=== PATIENT | male | born 1985 | race Hispanic/Latino ===

== ENCOUNTER 2017-04-27 14:26 | Emergency (ER) | payer OTHER ==
[2017-04-27 14:35] VITALS: BP 119/55; PULSE 90; RESP 16; TEMP 97.5; O2SAT 95
--- NOTE | 2017-04-27 14:42 | ED PDOC ---
HPI: General Adult Time Seen by Provider: 04/27/17 14:33 Chief Complaint (Nursing): Lower Extremity Problem/Injury Chief Complaint (Provider): Atraumatic Left Heel Pain History Per: Patient History/Exam Limitations: no limitations Onset/Duration Of Symptoms: Days (x2 weeks) Have you had recent travel within the past 21 days to any of the following countries: [place], [place], [place] or [place]?: No Current Symptoms Are (Timing): Still Present Additional Complaint(s): Hussain Pina, a 32 year old male, presents to the ED complaining of atraumatic left heel pain x2 weeks. The patient reports that he works 9 hours a day and is constantly on his feet. Denies trauma, numbness, tingling, calf pain, injury to leg. Past Medical History Reviewed: Historical Data, Nursing Documentation, Vital Signs Vital Signs: Last Vital Signs Temp 97.5 F L 04/27/17 14:32 Pulse 90 04/27/17 14:32 Resp 16 04/27/17 14:32 BP 119/55 L 04/27/17 14:32 Pulse Ox 95 04/27/17 14:42 - Medical History PMH: No Chronic Diseases - Surgical History Surgical History: No Surg Hx - Family History Family History: States: No Known Family Hx - Social History Current smoker - smoking cessation education provided: Yes (Current Some Days Smoker) Ex-Smoker (has not smoked in the last 12 months): Yes Alcohol: Other Drugs: Denies - Home Medications Home Medications: Ambulatory Orders Medication Instructions Recorded Cetirizine HCl [Zyrtec] 10 mg PO DAILY #10 capsule 07/28/15 Hydrocortisone Malu 0.2% Cr 1 ea TP BID #1 tube 07/28/15 [Westcort] predniSONE [predniSONE Tab] 10 mg PO TID #15 tab 07/28/15 Naproxen [Naprosyn] 500 mg PO BID PRN #30 tab 04/27/17 - Allergies Allergies/Adverse Reactions: Allergies Allergy/AdvReac Type Severity Reaction Status Date / Time No Known Allergies Allergy Verified 07/28/15 09:54 Review of Systems ROS Statement: Except As Marked, All Systems Reviewed And Found Negative Musculoskeletal: Positive for: Other (left heel pain) Physical Exam - Reviewed Nursing Documentation Reviewed: Yes Vital Signs Reviewed: Yes - Physical Exam Appears: Positive for: Non-toxic, No Acute Distress Pulses-Dorsalis Pedis (L): 2+ Extremity: Positive for: Normal ROM (normal ROM of left foot), Capillary Refill (less than 2 seconds), Other (no break in skin integrity no lesions on left foot ). Negative for: Tenderness (no tenderness to left foot), Calf Tenderness , Swelling (no swelling to left foot) Neurologic/Psych: Positive for: Alert, Oriented, Gait - ECG O2 Sat by Pulse Oximetry: 95 (RA) Pulse Ox Interpretation: Normal Medical Decision Making Medical Decision Makin Initial Impression 32 y/o male presenting with atraumatic left heel pain Initial Plan: * Reevaluation Pt was offered x-ray but states he will follow up with podiatry clinic but is requesting work note because missed work today. Patient is medically stable and requires no further treatment in the ED at this time. He will be discharged home. Scribe Attestation Documented by Adelia Ortega acting as a scribe for Willard Camilo PA-C. Scribe Attestation All medical record entries made by the Scribe were at my direction and personally dictated by me. I have reviewed the chart and agree that the record accurately reflects my personal performance of the history, physical exam, medical decision making, and the department course for this patient. I have also personally directed, reviewed, and agree with the discharge instructions and disposition. Disposition - Clinical Impression Clinical Impression: Heel pain - Patient ED Disposition Is Patient to be Admitted: No - Disposition Referrals: Podiatry Clinic [Outside] Disposition: Routine/Home Disposition Time: 14:40 Condition: STABLE Additional Instructions: Follow up with podiatry clinic next week for further evaluation. Prescriptions: Naproxen [Naprosyn] 500 mg PO BID PRN #30 tab PRN Reason: Pain Instructions: Heel Spur (ED) Forms: [employer] (Turkish), [facility] ED School/Work Excuse
== END 2017-04-27 14:55 | disposition home or self-care (01) ==
LOC: H.ER 14:26
DX: M79.672 Pain in left foot (principal)

== ENCOUNTER 2017-05-01 12:30 | Emergency (ER) | payer OTHER ==
[2017-05-01 12:52] VITALS: BP 114/66; PULSE 78; RESP 16; TEMP 98; O2SAT 100
--- NOTE | 2017-05-01 13:36 | ED PDOC ---
Lower Extremity Pain/Injury Time Seen by Provider: 05/01/17 12:49 Chief Complaint (Nursing): Lower Extremity Problem/Injury Chief Complaint (Provider): Lower Extremity Problem/Injury History Per: Patient History/Exam Limitations: no limitations Current Symptoms Are (Timing): Still Present Additional Complaint(s): 32 y/o male presents to the ED for evaluation of continued left heel pain x 2 weeks. He notes that the pain is worse when bearing weight. Patient was evaluated on 04/27/17 for same complaint, but he lost discharge papers with follow up information. Past Medical History Reviewed: Historical Data, Nursing Documentation, Vital Signs Vital Signs: Last Vital Signs Temp 98.0 F 05/01/17 12:50 Pulse 78 05/01/17 12:50 Resp 16 05/01/17 12:50 BP 114/66 05/01/17 12:50 Pulse Ox 100 05/01/17 12:50 - Medical History PMH: No Chronic Diseases - Surgical History Surgical History: No Surg Hx - Family History Family History: States: Unknown Family Hx - Living Arrangements Living Arrangements: With Family - Social History Current smoker - smoking cessation education provided: Yes (Some days smoker) Alcohol: Occasional Drugs: Denies - Home Medications Home Medications: Ambulatory Orders Medication Instructions Recorded Cetirizine HCl [Zyrtec] 10 mg PO DAILY #10 capsule 07/28/15 Hydrocortisone Malu 0.2% Cr 1 ea TP BID #1 tube 07/28/15 [Westcort] predniSONE [predniSONE Tab] 10 mg PO TID #15 tab 07/28/15 Naproxen [Naprosyn] 500 mg PO BID PRN #30 tab 04/27/17 - Allergies Allergies/Adverse Reactions: Allergies Allergy/AdvReac Type Severity Reaction Status Date / Time No Known Allergies Allergy Verified 05/01/17 12:50 Review of Systems ROS Statement: Except As Marked, All Systems Reviewed And Found Negative (As per HPI, otherwise negative) Constitutional: Negative for: Fever, Chills Musculoskeletal: Positive for: Other (Left heel pain ) Physical Exam - Reviewed Nursing Documentation Reviewed: Yes Vital Signs Reviewed: Yes - Physical Exam Appears: Positive for: Non-toxic, No Acute Distress Skin: Positive for: Normal Color, Warm, Dry Eye Exam: Positive for: Normal appearance ENT: Positive for: Normal ENT Inspection Neck: Positive for: Normal Respiratory: Negative for: Accessory Muscle Use, Respiratory Distress Extremity: Positive for: Normal ROM, Tenderness (tenderness on deep palaption of left heel). Negative for: Deformity, Swelling, Other (erythema) Neurologic/Psych: Positive for: Alert, Oriented (x3) - ECG O2 Sat by Pulse Oximetry: 100 (RA) Pulse Ox Interpretation: Normal Medical Decision Making Medical Decision Making: Time: 12:57 Plan: Left foot x-ray Foot x-ray without acute fracture or dislocation Scribe Attestation: Documented by Arelis Rangel acting as a scribe for Yael Jackson PA-C. MD Scribe Attestation: All medical record entries made by the Scribe were at my direction and personally dictated by me. I have reviewed the chart and agree that the record accurately reflects my personal performance of the history, physical exam, medical decision making, and the department course for this patient. I have also personally directed, reviewed, and agree with the discharge instructions and disposition. Disposition - Clinical Impression Clinical Impression: Heel pain - Patient ED Disposition Is Patient to be Admitted: No - Disposition Referrals: [facility] [Outside] Podiatry Clinic [Outside] Disposition: Routine/Home Disposition Time: 13:47 Condition: GOOD Instructions: Arthralgia (ED) Forms: [employer] (Yoruba)
--- NOTE | 2017-05-01 14:23 | RAD ---
PROCEDURE: Left Foot Radiographs. HISTORY: heel pain, no trauma COMPARISON: None. FINDINGS: BONES: Normal. No fracture. JOINTS: Normal. SOFT TISSUES: Normal. OTHER FINDINGS: None. IMPRESSION: Normal left foot radiographs.
== END 2017-05-01 14:06 | disposition home or self-care (01) ==
LOC: H.ER 12:30
DX: M79.671 Pain in right foot (principal)

== ENCOUNTER 2017-07-03 02:10 | Emergency (ER) | payer OTHER ==
[2017-07-03 02:32] VITALS: BP 130/72; PULSE 82; RESP 17; TEMP 98.4; O2SAT 97
--- NOTE | 2017-07-03 03:32 | ED PDOC ---
HPI: Chest Pain Time Seen by Provider: 07/03/17 02:21 Chief Complaint (Nursing): Chest Pain Chief Complaint (Provider): Chest Pain History Per: Patient History/Exam Limitations: no limitations Onset/Duration Of Symptoms: Days (x2) Current Symptoms Are (Timing): Still Present Additional Complaint(s): Hussain Pina is a 32 year old male with no past medical history that presents to the ED with a chief complaint of intermittent, pressure-like right- sided chest pain that he has been experiencing for the past 2 days. Patient denies any nausea, vomiting, cough, shortness of breath, fever, or diaphoresis. Past Medical History Reviewed: Historical Data, Nursing Documentation, Vital Signs Vital Signs: Last Vital Signs Temp 98.4 F 07/03/17 02:24 Pulse 82 07/03/17 02:24 Resp 17 07/03/17 02:24 BP 130/72 07/03/17 02:24 Pulse Ox 97 07/03/17 03:34 - Medical History PMH: No Chronic Diseases - Surgical History Surgical History: No Surg Hx - Family History Family History: States: Unknown Family Hx, CAD Other Family History: Father hx of heart disease - Social History Current smoker - smoking cessation education provided: No Alcohol: None Drugs: Denies - Home Medications Home Medications: Ambulatory Orders Medication Instructions Recorded Cetirizine HCl [Zyrtec] 10 mg PO DAILY #10 capsule 07/28/15 Hydrocortisone Malu 0.2% Cr 1 ea TP BID #1 tube 07/28/15 [Westcort] predniSONE [predniSONE Tab] 10 mg PO TID #15 tab 07/28/15 Naproxen [Naprosyn] 500 mg PO BID PRN #30 tab 04/27/17 - Allergies Allergies/Adverse Reactions: Allergies Allergy/AdvReac Type Severity Reaction Status Date / Time No Known Allergies Allergy Verified 05/01/17 12:50 Review of Systems ROS Statement: Except As Marked, All Systems Reviewed And Found Negative Cardiovascular: Positive for: Chest Pain Physical Exam - Reviewed Nursing Documentation Reviewed: Yes Vital Signs Reviewed: Yes - Physical Exam Appears: Positive for: Non-toxic, No Acute Distress Head Exam: Positive for: ATRAUMATIC, NORMOCEPHALIC Skin: Positive for: Normal Color, Warm Eye Exam: Positive for: Normal appearance, EOMI, PERRL ENT: Positive for: Normal ENT Inspection Neck: Positive for: Normal, Supple Cardiovascular/Chest: Positive for: Regular Rate, Rhythm. Negative for: Edema, Murmur Respiratory: Positive for: Normal Breath Sounds. Negative for: Wheezing Gastrointestinal/Abdominal: Positive for: Normal Exam, Soft. Negative for: Tenderness Back: Positive for: Normal Inspection. Negative for: L CVA Tenderness, R CVA Tenderness Extremity: Positive for: Normal ROM. Negative for: Pedal Edema, Deformity, Swelling Neurologic/Psych: Positive for: Alert, Oriented. Negative for: Motor/Sensory Deficits - Laboratory Results Result Diagrams: 07/03/17 03:45 07/03/17 03:45 - ECG O2 Sat by Pulse Oximetry: 97 (RA) Pulse Ox Interpretation: Normal Medical Decision Making Medical Decision Making: Impression: 32 year old male with chest pain Plan: * Chest X-Ray * EKG * CMP * CBC * Troponin I * Reevaluation * * * Patient reports improvement in symptoms and is stable upon discharge DX Atypical Chest Pain Stable [facility] Scribe Attestation: Documented by Ayana Pringle, acting as a scribe for Philipp Drake MD. Provider Scribe Attestation: All medical record entries made by the Scribe were at my direction and personally dictated by me. I have reviewed the chart and agree that the record accurately reflects my personal performance of the history, physical exam, medical decision making, and the department course for this patient. I have also personally directed, reviewed, and agree with the discharge instructions and disposition. Disposition - Clinical Impression Clinical Impression: Atypical chest pain - Disposition Referrals: [facility] [Outside] Disposition: Routine/Home Disposition Time: 04:00 Condition: STABLE Instructions: Noncardiac Chest Pain (ED) Forms: [email or web address] (Serbian), [facility] ED School/Work Excuse
[2017-07-03 03:48] LABS: BASO # 0.1 K/uL (0.0-0.2); BASO % 0.5 % (0.0-2.0); EOS # 0.1 K/uL (0.0-0.7); EOS % 0.9 % (0.0-4.0); HEMOGLOBIN 15.3 g/dL (12.0-18.0); LYMPH # 2.1 K/uL (1.0-4.3); LYMPH % 13.4 % (20.0-40.0); MEAN CELL VOLUME 91.9 fl (80.0-94.0); MEAN CORPUSCULAR HEMOGLOBIN 30.9 pg (27.0-31.0); MEAN CORPUSCULAR HGB CONC 33.6 g/dL (33.0-37.0); MEAN PLATELET VOLUME 9.7 fl (7.2-11.7); MONO # 1.5 K/uL (0.0-0.8); MONO % 9.4 % (0.0-10.0); NEUT # 11.8 K/uL (1.8-7.0); NEUT % 75.8 % (50.0-75.0); NRBC % 0.1 % (0.0-0.0); RBC 4.96 Mil/uL (4.40-5.90); RED CELL DISTRIBUTION WIDTH 12.8 % (11.5-14.5); WHITE BLOOD COUNT 15.5 K/uL (4.8-10.8)
[2017-07-03 03:57] LABS: BLOOD UREA NITROGEN 12 mg/dl (9-20); CALCIUM 9.2 mg/dL (8.4-10.2); GFR AFRICAN-AMERICAN > 60; GFR NON-AFRICAN AMERICAN > 60
--- NOTE | 2017-07-03 08:38 | RAD ---
HISTORY: chest pain COMPARISON: None FINDINGS: LUNGS: No active pulmonary disease. PLEURA: No significant pleural effusion identified, no pneumothorax apparent. CARDIOVASCULAR: Normal. OSSEOUS STRUCTURES: No significant abnormalities. VISUALIZED UPPER ABDOMEN: Normal. OTHER FINDINGS: None. IMPRESSION: No active disease.
--- NOTE | 2017-07-03 14:08 | CARD ---
APPROVED REPORT EKG Measurement Heart [id number] <Conclusion> Normal sinus rhythm Normal ECG
== END 2017-07-03 05:30 | disposition home or self-care (01) ==
LOC: H.ER 02:10
DX: R07.89 Other chest pain (principal)

== ENCOUNTER 2017-08-07 12:40 | Emergency (ER) | payer OTHER ==
[2017-08-07 12:48] VITALS: BP 121/74; PULSE 76; RESP 16; TEMP 97; O2SAT 100
--- NOTE | 2017-08-07 13:30 | ED PDOC ---
HPI: General Adult Time Seen by Provider: 08/07/17 13:10 Chief Complaint (Nursing): Lower Extremity Problem/Injury Chief Complaint (Provider): Back of right thigh pain History Per: Patient History/Exam Limitations: no limitations Onset/Duration Of Symptoms: Hrs (x1) Current Symptoms Are (Timing): Still Present Additional Complaint(s): Hussain Pina is a 32 year old male, with no significant past medical history, who presents to the emergency department complaining of sudden pain in the back of the right thigh onset since yesterday. 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 He is afraid he might further worsen the injury. He denies any calf pain or radiation of pain, blood trauma, numbness or tingling, chest pain or shortness of breath. Patient is requesting a work note. PMD: None provided. Past Medical History Reviewed: Historical Data, Nursing Documentation, Vital Signs Vital Signs: Last Vital Signs Temp 97.0 F L 08/07/17 12:45 Pulse 76 08/07/17 12:45 Resp 16 08/07/17 12:45 BP 121/74 08/07/17 12:45 Pulse Ox 100 08/07/17 14:29 - Medical History PMH: No Chronic Diseases - Family History Family History: States: Unknown Family Hx, CAD - Social History Current smoker - smoking cessation education provided: No Alcohol: None Drugs: Denies - Home Medications Home Medications: Ambulatory Orders Medication Instructions Recorded Cetirizine HCl [Zyrtec] 10 mg PO DAILY #10 capsule 07/28/15 Hydrocortisone Malu 0.2% Cr 1 ea TP BID #1 tube 07/28/15 [Westcort] predniSONE [predniSONE Tab] 10 mg PO TID #15 tab 07/28/15 Naproxen [Naprosyn] 500 mg PO BID PRN #30 tab 04/27/17 Naproxen [Naprosyn] 500 mg PO BID PRN #10 tab 08/07/17 - Allergies Allergies/Adverse Reactions: Allergies Allergy/AdvReac Type Severity Reaction Status Date / Time No Known Allergies Allergy Verified 08/07/17 12:45 Review of Systems ROS Statement: Except As Marked, All Systems Reviewed And Found Negative Constitutional: Negative for: Other (trauma) Cardiovascular: Negative for: Chest Pain Respiratory: Negative for: Shortness of Breath Musculoskeletal: Positive for: Leg Pain (back of the thigh). Negative for: Other (calf pain) Neurological: Negative for: Numbness (or tingling) Physical Exam - Reviewed Nursing Documentation Reviewed: Yes Vital Signs Reviewed: Yes - Physical Exam Appears: Positive for: Well, Non-toxic, No Acute Distress Head Exam: Positive for: ATRAUMATIC, NORMAL INSPECTION, NORMOCEPHALIC Skin: Positive for: Normal Color, Warm, Dry. Negative for: Rash Eye Exam: Positive for: Normal appearance Neck: Positive for: Painless ROM Pulses-Dorsalis Pedis (L): 2+ Pulses-Dorsalis Pedis (R): 2+ Extremity: Positive for: Normal ROM (full ROM actively of the right hip and right knee.), Tenderness (mild tenderness in mid posterior right thigh.). Negative for: Deformity, Swelling Neurologic/Psych: Positive for: Alert, Oriented - ECG O2 Sat by Pulse Oximetry: 100 (RA) Pulse Ox Interpretation: Normal Medical Decision Making Medical Decision Making: Initial Impression: Hamstring injury Initial Plan: --Reevaluation 13:28 Upon provider reevaluation patient is feeling better, is medically stable, and requires no further treatment in the ED at this time. Patient will be discharged home with Rx for Naprosyn. Counseling was provided and all questions were answered regarding diagnosis and need for follow up with outpatient health clinic. There is agreement to discharge plan. Return if symptoms persist or worsen. ~ Scribe Attestation: Documented by Leoncio Mccain, acting as a scribe for Willard Camilo PA-C. Provider Scribe Attestation: All medical record entries made by the Scribe were at my direction and personally dictated by me. I have reviewed the chart and agree that the record accurately reflects my personal performance of the history, physical exam, medical decision making, and the department course for this patient. I have also personally directed, reviewed, and agree with the discharge instructions and disposition. Disposition - Clinical Impression Clinical Impression: Hamstring injury - Patient ED Disposition Is Patient to be Admitted: No - Disposition Referrals: [facility] [Outside] Disposition: Routine/Home Disposition Time: 13:28 Condition: STABLE Additional Instructions: Follow up with orthopedist if symptoms persist or worsen. Prescriptions: Naproxen [Naprosyn] 500 mg PO BID PRN #10 tab PRN Reason: Pain Instructions: Hamstring Injury Forms: [facility] (Burmese), [facility] ED School/Work Excuse Print Language: GUINEAN
== END 2017-08-07 14:17 | disposition home or self-care (01) ==
LOC: H.ER 12:40
DX: S79.921A Unspecified injury of right thigh, initial encounter (principal); X50.0XXA Overexertion from strenuous movement or load, initial encounter; Y92.89 Other specified places as the place of occurrence of the external cause

== ENCOUNTER 2018-02-09 14:37 | Emergency (ER) | payer OTHER ==
--- NOTE | 2018-02-09 15:03 | ED PDOC ---
HPI: Abdomen Time Seen by Provider: 02/09/18 15:03 Chief Complaint (Nursing): Abdominal Pain Chief Complaint (Provider): abdominal pain History Per: Patient Additional Complaint(s): 32-year-old male presents with generalized lower abdominal pain that started earlier today. He denies any associated fever, chills, nausea, vomiting, diarrhea or constipation. Patient has had normal appetite. He denies consumption of any foods that could've caused stomach upset. No recent travel. No associated dysuria or hematuria. Patient denies concern for STDs. PMD: none Past Medical History Reviewed: Historical Data, Nursing Documentation, Vital Signs Vital Signs: Last Vital Signs Temp 98.9 F 02/09/18 17:43 Pulse 64 02/09/18 17:43 Resp 16 02/09/18 17:43 BP 138/67 02/09/18 17:43 Pulse Ox 97 02/09/18 17:43 - Medical History PMH: No Chronic Diseases - Surgical History Other surgeries: left arm fracture repair - Family History Family History: States: CAD - Living Arrangements Living Arrangements: With Family - Social History Current smoker - smoking cessation education provided: No Alcohol: None Drugs: Denies - Home Medications Home Medications: Ambulatory Orders Medication Instructions Recorded No Known Home Med 02/09/18 - Allergies Allergies/Adverse Reactions: Allergies Allergy/AdvReac Type Severity Reaction Status Date / Time No Known Allergies Allergy Verified 02/09/18 14:57 Review of Systems ROS Statement: Except As Marked, All Systems Reviewed And Found Negative Constitutional: Negative for: Fever, Chills Cardiovascular: Negative for: Chest Pain Respiratory: Negative for: Cough, Shortness of Breath Gastrointestinal: Positive for: Abdominal Pain. Negative for: Nausea, Vomiting , Diarrhea, Constipation Genitourinary Male: Negative for: Dysuria, Frequency, Incontinence, Hematuria, Penile Discharge, Scrotal Pain Physical Exam - Reviewed Nursing Documentation Reviewed: Yes Vital Signs Reviewed: Yes - Physical Exam Appears: Positive for: Well, Non-toxic, No Acute Distress Skin: Positive for: Normal Color. Negative for: Rash Eye Exam: Positive for: Normal appearance Cardiovascular/Chest: Positive for: Regular Rate, Rhythm Respiratory: Positive for: Normal Breath Sounds. Negative for: Wheezing, Respiratory Distress Gastrointestinal/Abdominal: Positive for: Tenderness (RLQ, LLQ). Negative for: Distended, Guarding, Rebound Back: Negative for: L CVA Tenderness, R CVA Tenderness, Vertebral Tenderness Extremity: Positive for: Normal ROM Neurologic/Psych: Positive for: Alert, Oriented - Laboratory Results Result Diagrams: 02/09/18 15:46 02/09/18 15:46 Urine dip results: Negative for: Leukocyte Esterase, Blood, Nitrate, Ketones, Glucose, Bilirubin, Protein - ECG O2 Sat by Pulse Oximetry: 98 Pulse Ox Interpretation: Normal - Other Rad CT abd and pelvis with IV contrast X-Ray: Read By Radiologist X-Ray Interpretation: no acute finding Medical Decision Making Medical Decision Makin32 y/o male with abdominal pain Plan: Urine dip CBC CMP Lipase Pain meds declined by patient CT abd and pelvis with IV contrast Patient is aware of diagnostic testing results, all questions answered. Advised Tylenol for pain and follow-up with clinic for any persistent symptoms. Disposition - Clinical Impression Clinical Impression: Abdominal pain - Patient ED Disposition Is Patient to be Admitted: No Counseled Patient/Family Regarding: Studies Performed, Diagnosis, Need For Followup - Disposition Referrals: [facility] [Outside] Disposition: Routine/Home Disposition Time: 18:38 Condition: STABLE Additional Instructions: Tylenol for pain as needed. Follow-up with clinic in 2-3 days or return to ED any time if acutely worse. Instructions: Stomach Ache and Stomach Upset Forms: [employer] (Maltese), [facility] ED School/Work Excuse Results - Lab Results Lab Results: 02/09/18 02/09/18 15:46 15:46 WBC 17.4 H RBC 4.99 Hgb 15.6 Hct 46.1 MCV 92.3 MCH 31.2 H MCHC 33.8 RDW 12.9 Plt Count 215 MPV 9.4 Neut % (Auto) 68.4 Lymph % (Auto) 18.6 L Boundary % (Auto) 11.1 H Eos % (Auto) 1.5 Baso % (Auto) 0.4 Neut # (Auto) 11.9 H Lymph # (Auto) 3.2 Boundary # (Auto) 1.9 H Eos # (Auto) 0.3 Baso # (Auto) 0.1 Sodium 138 Potassium 4.1 Chloride 106 Carbon Dioxide 26 Anion Gap 10 BUN 16 Creatinine 0.8 Est GFR ( Amer) > 60 Est GFR (Non-Af Amer) > 60 Random Glucose 119 H Calcium 9.3 Total Bilirubin 0.3 AST 26 ALT 33 Alkaline Phosphatase 73 Total Protein 7.6 Albumin 4.2 Globulin 3.5 Albumin/Globulin Ratio 1.2 Lipase 79
[2018-02-09 15:56] LABS: BASO # 0.1 K/uL (0.0-0.2); BASO % 0.4 % (0.0-2.0); EOS # 0.3 K/uL (0.0-0.7); EOS % 1.5 % (0.0-4.0); HEMOGLOBIN 15.6 g/dL (12.0-18.0); LYMPH # 3.2 K/uL (1.0-4.3); LYMPH % 18.6 % (20.0-40.0); MEAN CELL VOLUME 92.3 fl (80.0-94.0); MEAN CORPUSCULAR HEMOGLOBIN 31.2 pg (27.0-31.0); MEAN CORPUSCULAR HGB CONC 33.8 g/dL (33.0-37.0); MEAN PLATELET VOLUME 9.4 fl (7.2-11.7); MONO # 1.9 K/uL (0.0-0.8); MONO % 11.1 % (0.0-10.0); NEUT # 11.9 K/uL (1.8-7.0); NEUT % 68.4 % (50.0-75.0); NRBC % 0.1 % (0.0-0.0); RBC 4.99 Mil/uL (4.40-5.90); RED CELL DISTRIBUTION WIDTH 12.9 % (11.5-14.5); WHITE BLOOD COUNT 17.4 K/uL (4.8-10.8)
[2018-02-09 16:01] LABS: ALB/GLOB RATIO 1.2 (1.0-2.1); ALBUMIN 4.2 g/dL (3.5-5.0); ALT/SGPT 33 U/L (21-72); AST/SGOT 26 U/L (17-59); BLOOD UREA NITROGEN 16 mg/dl (9-20); CALCIUM 9.3 mg/dL (8.4-10.2); GFR NON-AFRICAN AMERICAN > 60; LIPASE 79 U/L (23-300)
[2018-02-09] MEDS ORDERED: Sodium Chloride 0.9% 1,000 ML IV STA (16:02)
[2018-02-09] MEDS ORDERED: Sodium Chloride 0.9% 50 ML IV ONE (16:56)
[2018-02-09] MEDS ORDERED: Iohexol 300 100 ML IJ ONE (16:56)
[2018-02-09 18:50] VITALS: O2SAT 98
[2018-02-09 19:36] VITALS: BP 135/70; PULSE 70; RESP 18; TEMP 98.8
--- NOTE | 2018-02-10 10:11 | CT ---
Date of service: 02/09/2018 PROCEDURE: CT Abdomen and Pelvis with contrast HISTORY: lower abd pain COMPARISON: None. TECHNIQUE: Following the intravenous administration of iodinated contrast material, a CT examination of the abdomen and pelvis performed from the domes of the diaphragms to the symphysis pubis with reformatted datasets provided in axial, sagittal and coronal planes. Oral contrast was not administered as per referring physician request. Coronal and sagittal reformats were generated. contrast dose: Omnipaque 300, 95 cc Radiation dose: Total exam DLP = 790.07 mGy-cm. This CT exam was performed using one or more of the following dose reduction techniques: Automated exposure control, adjustment of the mA and/or kV according to patient size, and/or use of iterative reconstruction technique. FINDINGS: LOWER THORAX: Unremarkable. LIVER: Upper limits normal liver with no discrete mass or intrahepatic biliary duct dilatation appreciated. GALLBLADDER AND BILE DUCTS: Unremarkable. PANCREAS: Unremarkable. No gross lesion or ductal dilatation. SPLEEN: Unremarkable. ADRENALS: Unremarkable. No mass. KIDNEYS AND URETERS: Unremarkable. No hydronephrosis. No solid mass. VASCULATURE: Unremarkable. No aortic aneurysm. BOWEL: Fluid and air distended stomach which is otherwise unremarkable appearing. Nonobstructive bowel gas. No gross mural thickening. No local mesenteric reactive changes identified throughout. Segments somewhat ectopic terminating at the central abdomen. APPENDIX: Normal appendix. PERITONEUM: Unremarkable. No free fluid. No free air. LYMPH NODES: Unremarkable. No enlarged lymph nodes. BLADDER: Unremarkable. REPRODUCTIVE: Unremarkable. BONES: Anterior wedging of the T11 and T12 vertebral bodies is limited and overall appearance may reflect fracture, potentially chronic but ultimately indeterminate in age. OTHER FINDINGS: None. IMPRESSION: No suspicious abdominal or pelvic findings at this time as discussed above relative to potential acute pathology. The appendix not identified but there is no CT evidence to suggest appendicitis. Anterior wedging of T11 and T12 is a minimal finding and may reflect mild compression fractures of indeterminate age.
== END 2018-02-09 18:48 | disposition home or self-care (01) ==
LOC: H.ER 14:37
DX: R10.30 Lower abdominal pain, unspecified (principal)
CPT/HCPCS: 74177; 80053; 83690; 85025; 87040; 87086; 87491; 87591; 96360; 99284; J7030; Q9967

== ENCOUNTER 2018-02-17 07:15 | Emergency (ER) | payer OTHER ==
[2018-02-17 07:34] VITALS: BMI 30.8
[2018-02-17] MEDS ORDERED: DiphenhydrAMINE 50 mg/ml Inj IVP STA (08:12)
[2018-02-17] MEDS ORDERED: methylPREDNISolone 125 MG in Sodium Chloride 0.9% 50 ML IV STA (08:13)
[2018-02-17 08:43] LABS: BASO # 0.1 K/uL (0.0-0.2); BASO % 0.5 % (0.0-2.0); EOS # 0.3 K/uL (0.0-0.7); EOS % 2.2 % (0.0-4.0); HEMOGLOBIN 14.9 g/dL (12.0-18.0); LYMPH % 14.7 % (20.0-40.0); MEAN CELL VOLUME 93.2 fl (80.0-94.0); MEAN CORPUSCULAR HEMOGLOBIN 31.3 pg (27.0-31.0); MEAN CORPUSCULAR HGB CONC 33.6 g/dL (33.0-37.0); MEAN PLATELET VOLUME 9.6 fl (7.2-11.7); MONO # 1.1 K/uL (0.0-0.8); MONO % 7.8 % (0.0-10.0); NEUT # 10.2 K/uL (1.8-7.0); NEUT % 74.8 % (50.0-75.0); RBC 4.75 Mil/uL (4.40-5.90); RED CELL DISTRIBUTION WIDTH 13.2 % (11.5-14.5); WHITE BLOOD COUNT 13.7 K/uL (4.8-10.8)
[2018-02-17 08:51] LABS: BLOOD UREA NITROGEN 15 mg/dl (9-20); CALCIUM 9.1 mg/dL (8.4-10.2); GFR NON-AFRICAN AMERICAN > 60
--- NOTE | 2018-02-17 08:54 | ED PDOC ---
HPI: Allergic Reaction Time Seen by Provider: 02/17/18 07:37 Chief Complaint (Nursing): Abnormal Skin Integrity Chief Complaint (Provider): rash History Per: Patient History/Exam Limitations: no limitations Onset/Duration Of Symptoms: Days (several) Current Symptoms Are (Timing): Still Present Associated Symptoms: Skin Rash, Itching Additional Complaint(s): Hussain Pina is a 32 year old male, with no significant past medical history, who presents to the emergency department complaining of a worsening itchy rash onset for several days. Patient states he initially noticed rash on arms as itchy red bumps but it has since spread to stomach, back, and legs. Symptoms worsens after taking a shower. Patient had a CT last week here due to abdominal pains and reports symptoms started x2 days after CT was done. He denies any shortness of breath, chest pain, tongue swelling, drooling, lip swelling or periorbital numbness. No further medical complaints. PMD: None provided. Past Medical History Reviewed: Historical Data, Nursing Documentation, Vital Signs Vital Signs: Last Vital Signs Temp 97.9 F 02/17/18 07:31 Pulse 101 H 02/17/18 07:31 Resp 20 02/17/18 07:31 BP 110/72 02/17/18 07:31 Pulse Ox 97 02/17/18 07:31 - Medical History PMH: No Chronic Diseases - Surgical History Surgical History: No Surg Hx - Family History Family History: States: Unknown Family Hx, CAD - Home Medications Home Medications: Ambulatory Orders Medication Instructions Recorded DiphenhydrAMINE [Benadryl] 25 mg PO BID PRN #14 cap 02/17/18 Famotidine [Pepcid] 20 mg PO DAILY #7 tab 02/17/18 Prednisone 50 mg PO DAILY #5 tablet 02/17/18 - Allergies Allergies/Adverse Reactions: Allergies Allergy/AdvReac Type Severity Reaction Status Date / Time No Known Allergies Allergy Verified 02/09/18 14:57 Review of Systems ROS Statement: Except As Marked, All Systems Reviewed And Found Negative Eyes: Negative for: Eyelid Inflammation ENT: Negative for: Mouth Swelling, Throat Swelling Cardiovascular: Negative for: Chest Pain Respiratory: Negative for: Shortness of Breath Skin: Positive for: Rash (itchy red bumpns, to arms leg and trunk) Neurological: Positive for: Weakness Physical Exam - Reviewed Nursing Documentation Reviewed: Yes Vital Signs Reviewed: Yes - Physical Exam Appears: Positive for: No Acute Distress Head Exam: Positive for: ATRAUMATIC, NORMOCEPHALIC Skin: Positive for: Normal Color, Warm, Dry, Rash (Urticarial rash without erythematous base, pus, drainage, pustules or vesicles. Excoriations of left arm without signs of infection) Eye Exam: Positive for: Normal appearance (No drooling of secretions or swelling of oropharynx), EOMI, PERRL Neck: Positive for: Painless ROM Cardiovascular/Chest: Positive for: Regular Rate, Rhythm. Negative for: Murmur Respiratory: Positive for: Normal Breath Sounds. Negative for: Respiratory Distress Gastrointestinal/Abdominal: Positive for: Normal Exam, Soft. Negative for: Tenderness, Guarding, Rebound Back: Positive for: Normal Inspection. Negative for: L CVA Tenderness, R CVA Tenderness, Vertebral Tenderness Extremity: Positive for: Normal ROM (upper and lower extremities). Negative for: Deformity, Swelling Neurologic/Psych: Positive for: Alert, Oriented, Gait (steady) - Laboratory Results Result Diagrams: 02/17/18 08:30 02/17/18 08:30 - ECG O2 Sat by Pulse Oximetry: 97 (RA) Pulse Ox Interpretation: Normal Disposition - Clinical Impression Clinical Impression: Urticaria due to drug allergy - Disposition Disposition: Routine/Home Disposition Time: 10:05 Condition: IMPROVED Additional Instructions: Take Prednisone daily for 5 days. Take Benadryl as needed for itching. Benadryl may make you drowsy so do not take the Benadryl if you are driving, operating machinery, or performing dangerous activities. Return to the emergency department if you develop fever, pus, swelling, or other new symptoms. Follow u p with primary medical doctor in one week. Prescriptions: DiphenhydrAMINE [Benadryl] 25 mg PO BID PRN #14 cap PRN Reason: Itching / Pruritus Famotidine [Pepcid] 20 mg PO DAILY #7 tab Prednisone 50 mg PO DAILY #5 tablet Instructions: Hives (DC) Forms: [employer] (Serbian), [facility] ED School/Work Excuse Print Language: SLOVAK Medical Decision Making Medical Decision Makin:37 Initial Impression: allergic dermatities possibly due contrast solution. Will give Benadryl, SOLU-medrol,, pepcid and reevaluate. Initial Plan: --BMP --CBC w/ differential --Benadryl 50 mg IVP --Pepcid 40 mg IVP --SOLU-medrol 125 mg IVP --Reevaluation 10:01 -Patient reports improvement of symptoms. Labs showed mild elevation of wbc, otherwise normal. Patient to be discharged home with prednisone, benadryl, pepcid and advised to follow up with PMD in 1 to 2 weeks. ----- Scribe Attestation: Documented by Leoncio Mccain, acting as a scribe for Lucille Jones MD. Provider Scribe Attestation: All medical record entries made by the Scribe were at my direction and personally dictated by me. I have reviewed the chart and agree that the record accurately reflects my personal performance of the history, physical exam, medical decision making, and the department course for this patient. I have also personally directed, reviewed, and agree with the discharge instructions and disposition.
[2018-02-17 12:01] VITALS: BP 116/70; PULSE 96; RESP 16; TEMP 98; O2SAT 98
== END 2018-02-17 11:50 | disposition home or self-care (01) ==
LOC: H.ER 07:15
DX: L50.0 Allergic urticaria (principal)
CPT/HCPCS: 80048; 85025; 96374; 96375; 99283; J1200; J2930

== ENCOUNTER 2018-04-21 15:12 | Emergency (ER) | payer BC, OTHER ==
[2018-04-21 15:12] VITALS: BMI 30.8
[2018-04-21 15:33] VITALS: BP 130/75; PULSE 74; RESP 18; TEMP 98; O2SAT 99
--- NOTE | 2018-04-21 15:59 | ED PDOC ---
HPI: General Adult Time Seen by Provider: 04/21/18 15:56 Chief Complaint (Nursing): Abnormal Skin Integrity Chief Complaint (Provider): Abnormal Skin Integrity History Per: Patient History/Exam Limitations: no limitations Additional Complaint(s): 33 year old male presents to the for evaluation of left axilla swelling. Patient reports a previous episode of symptoms that spontaneous resolved. Denies fever and chills. PMD; none Past Medical History Reviewed: Historical Data, Nursing Documentation, Vital Signs Vital Signs: Last Vital Signs Temp 98 F 04/21/18 15:31 Pulse 74 04/21/18 15:31 Resp 18 04/21/18 15:31 BP 130/75 04/21/18 15:31 Pulse Ox 99 04/21/18 15:31 - Medical History PMH: No Chronic Diseases - Surgical History Surgical History: No Surg Hx - Family History Family History: States: Unknown Family Hx, CAD - Home Medications Home Medications: Ambulatory Orders Medication Instructions Recorded DiphenhydrAMINE [Benadryl] 25 mg PO BID PRN #14 cap 02/17/18 Famotidine [Pepcid] 20 mg PO DAILY #7 tab 02/17/18 Prednisone 50 mg PO DAILY #5 tablet 02/17/18 Cephalexin [Keflex] 500 mg PO TID #21 capsule 04/21/18 - Allergies Allergies/Adverse Reactions: Allergies Allergy/AdvReac Type Severity Reaction Status Date / Time No Known Allergies Allergy Verified 02/09/18 14:57 Review of Systems ROS Statement: Except As Marked, All Systems Reviewed And Found Negative Constitutional: Negative for: Fever, Chills Musculoskeletal: Positive for: Other (axilla swelling ) Physical Exam - Reviewed Nursing Documentation Reviewed: Yes Vital Signs Reviewed: Yes - Physical Exam Appears: Positive for: Non-toxic, No Acute Distress Head Exam: Positive for: ATRAUMATIC, NORMAL INSPECTION, NORMOCEPHALIC Skin: Positive for: Normal Color, Warm, DRY Eye Exam: Positive for: EOMI, Normal appearance, PERRL Extremity: Positive for: Normal ROM, Swelling (2.5 cm region of induration with mild erythema) - ECG O2 Sat by Pulse Oximetry: 99 (RA) Pulse Ox Interpretation: Normal Medical Decision Making Medical Decision Making: Discussed options and I & D procedure with patient. Discharged with Keflex for infection and will return to the ED in two days for reevaluation. Scribe Attestation: Documented by Farrah Rolon, acting as a scribe for Holly Rangel PA-C Provider Scribe Attestation: All medical record entries made by the Scribe were at my direction and personally dictated by me. I have reviewed the chart and agree that the record accurately reflects my personal performance of the history, physical exam, medical decision making, and the department course for this patient. I have also personally directed, reviewed, and agree with the discharge instructions and disposition. Disposition - Clinical Impression Clinical Impression: Abscess, Abscess of left axilla - Patient ED Disposition Is Patient to be Admitted: No - Disposition Disposition: Routine/Home Disposition Time: 15:57 Condition: FAIR Prescriptions: Cephalexin [Keflex] 500 mg PO TID #21 capsule Instructions: [place] (DC) Forms: [facility] ED School/Work Excuse
== END 2018-04-21 16:30 | disposition home or self-care (01) ==
LOC: H.ER 15:12
DX: L02.412 Cutaneous abscess of left axilla (principal)

== ENCOUNTER 2018-05-26 05:48 | Emergency (ER) | payer BC ==
[2018-05-26 05:48] VITALS: BMI 30.8
[2018-05-26 06:15] VITALS: TEMP 98.3
--- NOTE | 2018-05-26 07:35 | ED PDOC ---
Lower Extremity Pain/Injury Time Seen by Provider: 05/26/18 07:02 Chief Complaint (Nursing): Lower Extremity Problem/Injury Chief Complaint (Provider): Lower Extremity Problem/Injury History Per: Patient History/Exam Limitations: no limitations Onset/Duration Of Symptoms: Days (x7) Current Symptoms Are (Timing): Still Present Additional Complaint(s): 33 year old male presents to the ED with right foot pain for one week. Patient reports that he stubbed his toe last week and has taken nothing for pain since. He is on his feet a lot of the day for work. Otherwise offers no other complaints. PMD: none provided Past Medical History Reviewed: Historical Data, Nursing Documentation, Vital Signs Vital Signs: Last Vital Signs Temp 98.3 F 05/26/18 06:00 Pulse 83 05/26/18 06:00 Resp 16 05/26/18 06:00 BP 118/66 05/26/18 06:00 Pulse Ox 98 05/26/18 06:00 - Medical History PMH: No Chronic Diseases - Surgical History Surgical History: Hernia Repair Other surgeries: metal plate in left forearm - Family History Family History: States: Unknown Family Hx, CAD - Home Medications Home Medications: Ambulatory Orders Medication Instructions Recorded DiphenhydrAMINE [Benadryl] 25 mg PO BID PRN #14 cap 02/17/18 Famotidine [Pepcid] 20 mg PO DAILY #7 tab 02/17/18 Prednisone 50 mg PO DAILY #5 tablet 02/17/18 Cephalexin [Keflex] 500 mg PO TID #21 capsule 04/21/18 Naproxen [Naprosyn] 500 mg PO BID PRN #15 tablet 05/26/18 - Allergies Allergies/Adverse Reactions: Allergies Allergy/AdvReac Type Severity Reaction Status Date / Time No Known Allergies Allergy Verified 02/09/18 14:57 Review of Systems ROS Statement: Except As Marked, All Systems Reviewed And Found Negative Musculoskeletal: Positive for: Foot Pain (right foot pain) Physical Exam - Reviewed Nursing Documentation Reviewed: Yes Vital Signs Reviewed: Yes - Physical Exam Appears: Positive for: No Acute Distress Head Exam: Positive for: ATRAUMATIC, NORMAL INSPECTION, NORMOCEPHALIC Skin: Positive for: Normal Color Eye Exam: Positive for: Normal appearance Pulses-Dorsalis Pedis (R): 2+ Extremity: Positive for: Tenderness (to right anterior distal foot), Capillary Refill (less than 2 seconds). Negative for: Calf Tenderness, Deformity, Other (ecchymosis or edema ) Neurologic/Psych: Positive for: Alert, Oriented. Negative for: Motor/Sensory Deficits - ECG O2 Sat by Pulse Oximetry: 98 (RA) Pulse Ox Interpretation: Normal Medical Decision Making Medical Decision Makin:29 Impression: right foot pain Initial Plan: --right foot x-ray --Motrin 600 mg PO Scribe Attestation: Documented by Farrah Rolon acting as a scribe for Margie Glasgow MD Provider Scribe Attestation: All medical record entries made by the Scribe were at my direction and personally dictated by me. I have reviewed the chart and agree that the record accurately reflects my personal performance of the history, physical exam, medical decision making, and the department course for this patient. I have also personally directed, reviewed, and agree with the discharge instructions and disposition. Disposition - Clinical Impression Clinical Impression: Foot pain - Disposition Referrals: Mike Mcfarlane DPM [Medical Doctor] - Disposition: Routine/Home Disposition Time: 10:13 Condition: STABLE Prescriptions: Naproxen [Naprosyn] 500 mg PO BID PRN #15 tablet PRN Reason: Pain, Moderate (4-7) Instructions: Muscle and Bone Pain (DC) Forms: [employer] (German), [facility] ED School/Work Excuse
[2018-05-26 10:20] VITALS: BP 124/76; PULSE 80; RESP 18
--- NOTE | 2018-05-26 13:32 | RAD ---
Date of service: 05/26/2018 PROCEDURE: Right Foot Radiographs. HISTORY: Distal anterior pain COMPARISON: None. FINDINGS: BONES: Normal. No fracture. JOINTS: Normal. SOFT TISSUES: Normal. OTHER FINDINGS: None. IMPRESSION: Normal right foot radiographs.
[2018-05-31 12:28] VITALS: O2SAT 98
== END 2018-05-26 10:20 | disposition home or self-care (01) ==
LOC: H.ER 05:48
DX: M79.671 Pain in right foot (principal); W22.8XXA Striking against or struck by other objects, initial encounter

== ENCOUNTER 2018-07-21 17:54 | Emergency (ER) | payer BC ==
[2018-07-21 17:54] VITALS: BMI 30.8
[2018-07-21 18:09] VITALS: RESP 18
[2018-07-21] MEDS ORDERED: Sodium Chloride 0.9% 1,000 ML IV STA (18:27)
[2018-07-21 19:22] LABS: BASO # 0.1 K/uL (0.0-0.2); BASO % 0.7 % (0.0-2.0); EOS # 0.4 K/uL (0.0-0.7); EOS % 3.5 % (0.0-4.0); HEMOGLOBIN 14.6 g/dL (12.0-18.0); LYMPH % 24.7 % (20.0-40.0); MEAN CELL VOLUME 93.1 fl (80.0-94.0); MEAN CORPUSCULAR HEMOGLOBIN 30.9 pg (27.0-31.0); MEAN CORPUSCULAR HGB CONC 33.2 g/dL (33.0-37.0); MEAN PLATELET VOLUME 10.6 fl (7.2-11.7); MONO # 1.3 K/uL (0.0-0.8); MONO % 10.6 % (0.0-10.0); NEUT # 7.4 K/uL (1.8-7.0); NEUT % 60.5 % (50.0-75.0); NRBC % 0.1 % (0.0-0.0); RBC 4.74 Mil/uL (4.40-5.90); RED CELL DISTRIBUTION WIDTH 12.8 % (11.5-14.5); WHITE BLOOD COUNT 12.2 K/uL (4.8-10.8)
--- NOTE | 2018-07-21 19:26 | ED PDOC ---
HPI: Abdomen Time Seen by Provider: 07/21/18 18:10 Chief Complaint (Nursing): GI Problem Chief Complaint (Provider): Abdominal Pain History Per: Patient History/Exam Limitations: no limitations Onset/Duration Of Symptoms: Hrs (4x) Current Symptoms Are (Timing): Still Present Severity: Moderate Associated Symptoms: Vomiting (2x episodes non bloody non bilious), Diarrhea (2x episodes non bloody) Additional Complaint(s): 33 year old male with no past medical history presents to the ED for an evaluation of abdominal pain that started 4x hours prior to arrival. Patient states that he woke up today 4x hours prior to arrival (as he works at night) with abdominal discomfort. Patient reports having 2x episodes of non-bloody non- bilious vomiting and 2x episodes of non-bloody diarrhea since then. Patient denies having fevers, chills, known sick contacts, recent travel, new foods eaten recently. PMD: None. Past Medical History Reviewed: Historical Data, Nursing Documentation, Vital Signs Vital Signs: Last Vital Signs Temp 98.2 F 07/21/18 18:07 Pulse 74 07/21/18 18:07 Resp 18 07/21/18 18:07 BP 136/83 07/21/18 18:07 Pulse Ox 98 07/21/18 18:07 SILVIO Report Viewed: Yes - Medical History PMH: No Chronic Diseases - Surgical History Surgical History: Hernia Repair Other surgeries: left forearm surgery after fracture - Family History Family History: States: CAD - Social History Current smoker - smoking cessation education provided: No Alcohol: Social Drugs: Denies - Home Medications Home Medications: Ambulatory Orders Medication Instructions Recorded DiphenhydrAMINE [Benadryl] 25 mg PO BID PRN #14 cap 02/17/18 Famotidine [Pepcid] 20 mg PO DAILY #7 tab 02/17/18 Prednisone 50 mg PO DAILY #5 tablet 02/17/18 Cephalexin [Keflex] 500 mg PO TID #21 capsule 04/21/18 Naproxen [Naprosyn] 500 mg PO BID PRN #15 tablet 05/26/18 - Allergies Allergies/Adverse Reactions: Allergies Allergy/AdvReac Type Severity Reaction Status Date / Time No Known Allergies Allergy Verified 02/09/18 14:57 Review of Systems ROS Statement: Except As Marked, All Systems Reviewed And Found Negative Constitutional: Negative for: Fever, Chills Gastrointestinal: Positive for: Vomiting (2x episodes (non bloody, non bilious)), Abdominal Pain, Diarrhea (2x episodes (non bloody)) Physical Exam - Reviewed Nursing Documentation Reviewed: Yes Vital Signs Reviewed: Yes - Physical Exam Appears: Positive for: Well, Non-toxic, No Acute Distress Head Exam: Positive for: ATRAUMATIC, NORMOCEPHALIC Skin: Positive for: Warm, Dry Eye Exam: Positive for: EOMI, PERRL ENT: Negative for: Pharyngeal Erythema, Tonsillar Exudate Neck: Positive for: Painless ROM, Supple Cardiovascular/Chest: Positive for: Regular Rate, Rhythm. Negative for: Murmur Respiratory: Positive for: Normal Breath Sounds. Negative for: Respiratory Distress Gastrointestinal/Abdominal: Positive for: Soft, Tenderness (mild tenderness to palpation diffusely). Negative for: Mass, Distended, Guarding, Rebound Back: Positive for: Normal Inspection. Negative for: Decreased ROM Extremity: Positive for: Normal ROM. Negative for: Deformity Lymphatic: Negative for: Adenopathy Neurologic/Psych: Positive for: Alert, Oriented (3x) - Laboratory Results Result Diagrams: 07/21/18 18:30 07/21/18 18:30 - ECG O2 Sat by Pulse Oximetry: 98 (RA) Pulse Ox Interpretation: Normal Medical Decision Making Medical Decision Makin:10 Initial impression: 33 year old male with vomiting and diarrhea. Differential diagnoses include but are not limited gastroenteritis, dehydration, electrolyte abnormality, and viral syndrome Initial plan: * CMP * lipase * CBC with differential * bentyl 20 mg po * IV NS 1,000 ml IV 1,000 mls/hr * pepcid 20 mg IVP * zofran 4 mg IVP * reevaluation Labs unremarkable DW pt findings and plan of care. Rest, fluids, bland diet, f/u clinic. Return parameters discussed. Scribe Attestation: Documented by Lucille Jarvis, acting as a scribe for Eva Morse MD. Provider Scribe Attestation: All medical record entries made by the Scribe were at my direction and personally dictated by me. I have reviewed the chart and agree that the record accurately reflects my personal performance of the history, physical exam, medical decision making, and the department course for this patient. I have also personally directed, reviewed, and agree with the discharge instructions and disposition. Disposition - Clinical Impression Clinical Impression: Abdominal pain, Vomiting and diarrhea Counseled Patient/Family Regarding: Studies Performed, Diagnosis, Need For Followup, Rx Given - Disposition Referrals: [facility] [Outside] Disposition: Routine/Home Disposition Time: 19:37 Condition: STABLE Instructions: Acute Abdomen (Belly Pain), Adult (DC), Viral Gastroenteritis, Adult (DC) Forms: [facility] ED School/Work Excuse
[2018-07-21 19:32] LABS: ALBUMIN 3.5 g/dL (3.5-5.0); ALT/SGPT 39 U/L (21-72); AST/SGOT 29 U/L (17-59); BLOOD UREA NITROGEN 15 mg/dl (9-20); CALCIUM 8.7 mg/dL (8.4-10.2); GFR NON-AFRICAN AMERICAN > 60; LIPASE 90 U/L (23-300)
[2018-07-21 20:13] VITALS: BP 124/76; PULSE 70; TEMP 98.1; O2SAT 99
== END 2018-07-21 20:13 | disposition home or self-care (01) ==
LOC: H.ER 17:54
DX: R10.9 Unspecified abdominal pain (principal); R19.7 Diarrhea, unspecified; R11.10 Vomiting, unspecified
CPT/HCPCS: 80053; 83690; 85025; 99284; J7030